=== PATIENT | female | born 1935 | race Caucasian/White ===

== ENCOUNTER 2017-04-30 16:50 | Emergency (ER) | payer SELFPAY ==
[~2017-04-30] VITALS: Ht 167.6 cm; Wt 50.0 kg
[2017-04-30 16:57] VITALS: BP 161/78
[2017-04-30] MEDS ORDERED: PLEASE ENTER HEIGHT AND WEIGHT MC SCH (17:00)
[2017-04-30] MEDS ORDERED: PLEASE ENTER ALLERGIES MC SCH ×2 (17:00)
[2017-04-30] MEDS ORDERED: SODIUM CHLORIDE FLUSH 10ML SYR IVF ONE (17:00)
== END 2017-04-30 17:53 | disposition left against medical advice (07) ==
LOC: ED 17:06
DX: M54.6 Pain in thoracic spine (principal); M54.5 Low back pain; Z53.21 Procedure and treatment not carried out due to patient leaving prior to being seen by health care provider; W19.XXXA Unspecified fall, initial encounter; Y93.89 Activity, other specified; Y99.8 Other external cause status; Y92.090 Kitchen in other non-institutional residence as the place of occurrence of the external cause